=== PATIENT | female | born 1995 | race Hispanic/Latino ===

== ENCOUNTER 2019-03-27 20:18 | Inpatient (IN) | payer OTHER ==
[~2019-03-27] VITALS: Ht 154.9 cm; Wt 56.7 kg
[2019-03-27 20:58] LABS: APPEARANCE,URINE Clear (CLEAR); BILIRUBIN,URINE Negative (NEGATIVE); COLOR,URINE Yellow (YELLOW); GLUCOSE, URINE (UA) Negative (NEGATIVE); KETONES,URINE Negative (NEGATIVE); LEUKOCYTE ESTERASE ,URINE Negative (NEGATIVE); NITRATE,URINE Negative (NEGATIVE); OCCULT BLOOD,URINE Negative (NEGATIVE); PH,URINE 6.5 (5.0-8.0); PROTEIN,URINE Negative (NEGATIVE); UROBILINOGEN,URINE 0.2 mg/dL (0.2-1.0)
[2019-03-27 21:06] LABS: AMPHET/METH SCREEN,URINE NEGATIVE (NEGATIVE); BARBITURATE SCREEN, URINE NEGATIVE (NEGATIVE); BENZODIAZEPINES SCREEN,URINE NEGATIVE (NEGATIVE); CANNABINOID SCREEN,URINE NEGATIVE (NEGATIVE); COCAINE SCREEN,URINE NEGATIVE (NEGATIVE); OPIATE SCREEN,URINE NEGATIVE (NEGATIVE); PHENCYCLIDINE SCREEN,URINE NEGATIVE (NEGATIVE)
[2019-03-27] MEDS ORDERED: LACTATED RINGERS 1000ML 1,000 ML IV PRN ×2 (22:04→22:43)
[2019-03-27] MEDS ORDERED: OXYTOCIN-LR 20 UNITS/1000 ML 1,000 ML IV SCH (22:15)
[2019-03-27 22:23] LABS: MEAN CORPUSCULAR HGB CONC 34.1 g/dL (32.0-36.0); MEAN CORPUSCULAR VOLUME 93.9 fL (79-99); NUCLEATED RED BLOOD CELLS 0.1 % (0.0-0.19); PLATELET COUNT (AUTO) 345 K/uL (130-400); RED CELL DISTRIBUTION WIDTH 13.9 % (11.0-15.5); WHITE BLOOD COUNT (AUTO) 9.8 K/uL (4.8-10.8)
[2019-03-27 22:29] LABS: INR 0.86 (0.85-1.15); PROTHROMBIN TIME 9.1 SEC (9.6-11.6)
[2019-03-27] MEDS ORDERED: MISOPROSTOL 200 MCG TABLET VG SCH ×2 (22:45)
[2019-03-27] MEDS ORDERED: MEPERIDINE-PF 100 MG/ML SYG SIVP PRN (22:45)
[2019-03-27] MEDS ORDERED: ONDANSETRON HCL 4 MG/2 ML VIAL IV PRN (22:45)
[2019-03-27] MEDS ORDERED: DIAZEPAM 5 MG/ML 2 ML SYG SIVP PRN (22:45)
[2019-03-27] MEDS ORDERED: MEPERIDINE-PF 50 MG/ML SYG SIVP PRN (22:45)
[2019-03-27] MEDS ORDERED: MISOPROSTOL 200 MCG TABLET ONE (23:49)
[2019-03-28] MEDS ORDERED: MISOPROSTOL 200 MCG TABLET VG SCH ×2 (04:00)
[2019-03-28] MEDS ORDERED: MEPERIDINE-PF 25 MG/ML SYG ONE (07:26)
[2019-03-28] MEDS ORDERED: DIAZEPAM 5 MG/ML 2 ML SYG IVP PRN (07:45)
[2019-03-28] MEDS ORDERED: WITCH HAZEL 1 PAD TP PRN (09:30)
[2019-03-28] MEDS ORDERED: BENZOCAINE/LANOLIN/ALOE VERA 60 ML AEROSOL TP PRN (09:30)
[2019-03-28] MEDS ORDERED: ACETAMINOPHEN 325 MG TAB PO PRN (09:30)
[2019-03-28] MEDS ORDERED: IBUPROFEN 600 MG TABLET PO PRN (09:30)
[2019-03-28] MEDS ORDERED: ACETAMINOPHEN-CODEINE 300/30MG TAB PO PRN (09:30)
[2019-03-28] MEDS ORDERED: LANOLIN 30GM OINTMENT TP PRN (09:30)
[2019-03-28 12:05] VITALS: BP 121/68
--- NOTE | 2019-03-28 15:17 | NUR ---
EMOTIONAL SUPPORT Per nurse Gracia pt wanting to dc home by 3. baby has already been picked up by home. Sw met with pt and FOB. Pt and FOB have already made arrangements for their daughter. Pt reports she will have good family support after dc. Pt given counseling resources to interview and use if needed in future. Emotional support given.
[2019-03-28 16:20] VITALS: BP 116/60
--- NOTE | 2019-03-28 17:40 | NUR ---
INSTRUCTIONS ALL INSTRUCTIONS READ TO PATIENT AND SPOUSE, TEACH BACK DONE, ANSWERED QUESTIONS PERTAINED; DEPRESSION EMPHASIZED, ALONG WITH 9 PAGES OF RESOURCES FOR PATIENT TO ACQUIRE NEEDED; PT AND SPOUSE VERBALIZED UNDERSTANDING AND PT SIGNED UNDERSTANDING
--- NOTE | 2019-03-28 17:55 | NUR ---
DISCHARGE PT STABLE, NO PAIN, NO COMPLAINTS; PT LEFT UNIT, VIA WHEELCHAIR, ESCORTED BY RN AND SPOUSE CARRYING ALL PERSONAL BELONGINGS AND INSTRUCTIONS; BABY HAD BEEN TRANSPORTED TO [facility] BY [facility]; PT LEFT FACILITY IN PERSONAL VEHICLE
[2019-03-28] MEDS ORDERED: DOCUSATE SODIUM 100 MG CAP PO SCH (21:00)
[2019-03-29 08:15] LABS: HEPATITIS Bs ANTIGEN SCREEN P Negative (Negative)
== END 2019-03-28 17:55 | disposition home or self-care (01) | DRG 807 ==
LOC: EDH 20:18 → LDH 20:32 → OBSVTOIN 20:32 → WSH 03-28 12:09
PROVIDERS: ADMIT Specialist; ATTEND Specialist
PROC: 10E0XZZ Delivery of Products of Conception, External Approach (ICD-10-PCS; principal; 2019-03-28)
PROC: 3E0P7VZ Introduction of Hormone into Female Reproductive, Via Natural or Artificial Opening (ICD-10-PCS; 2019-03-28)
DX: O36.4XX0 Maternal care for intrauterine death, not applicable or unspecified (principal); Z37.1 Single stillbirth; Z3A.24 24 weeks gestation of pregnancy
CPT/HCPCS: 36415; 76815; 80305; 81003; 85027; 85378; 85384; 85610; 85730; 86592; 86850; 86900; 86901; 87340; 88307; G0378; J2175; J2405; J2590; J7120